=== PATIENT | female | born 1990 | race Caucasian/White ===

== ENCOUNTER 2017-09-02 14:02 | Outpatient (CLI) | payer OTHER ==
[2017-09-02 15:15] LABS: ADD UMIC NO; UR AMORPHOUS CRYSTAL FEW /HPF (NONE SEEN); UR ASCORBIC ACID NEGATIVE (NEGATIVE); UR BACTERIA FEW /HPF (NONE SEEN); UR BILIRUBIN (Dip) NEGATIVE (NEGATIVE); UR BLOOD (Dip) NEGATIVE (NEGATIVE); UR CLARITY SLIGHTLY CLOUDY (CLEAR); UR COLOR YELLOW (YELLOW); UR GLUCOSE (Dip) NEGATIVE (NEGATIVE); UR KETONES (Dip) NEGATIVE (NEGATIVE); UR LEUKOCYTE ESTERASE (Dip) NEGATIVE Leu/ul (NEGATIVE); UR NITRITE (Dip) NEGATIVE (NEGATIVE); UR RBC 1 /HPF (0-5); UR SPECIFIC GRAVITY (Dip) 1.011 (1.003-1.030); UR SQUAMOUS EPITHELIAL CELL MODERATE /HPF (FEW); UR TOTAL PROTEIN (Dip) NEGATIVE (NEGATIVE); UR UROBILINOGEN (Dip) NEGATIVE (NEGATIVE); UR WBC 1 /HPF (0-5)
[2017-09-02 16:17] LABS: ADD MAN DIFF? NO
[2017-09-02] MEDS ORDERED: TERBUTALINE 1 ML (16:51)
[2017-09-02 16:55] LABS: BASOPHILS % 0.4 % (0.0-2.0); EOSINOPHILS # 0.1 10^3/ul (0.0-0.5); EOSINOPHILS % 1.4 % (0.0-7.0); HEMOGLOBIN 9.9 g/dl (12.0-16.0); LYMPHOCYTES % 29.2 % (15.0-51.0); MEAN CORPUSCULAR HEMOGLOBIN 29.4 pg (29.0-33.0); MEAN CORPUSCULAR HGB CONC 31.9 g/dl (32.0-37.0); MONOCYTE # 0.6 10^3/ul (0.3-0.9); MONOCYTES % 8.9 % (0.0-11.0); NEUTROPHIL # 4.2 10^3/ul (1.6-7.5); NEUTROPHILS % 59.7 % (39.0-77.0); PLATELET COUNT 186 10^3/UL (140-415); RED BLOOD COUNT 3.37 10^6/ul (4.20-5.40); RED CELL DISTRIBUTION WIDTH 14.6 % (11.5-14.5)
[2017-09-02] MEDS: TERBUTALINE 1 MG/ML INJ SC (17:01)
== END 2017-09-02 18:05 | disposition home or self-care (01) ==
LOC: OBT 14:02 → L-D 14:02 → OBT 18:05
DX: O26.893 Other specified pregnancy related conditions, third trimester (principal); Z3A.30 30 weeks gestation of pregnancy; R10.32 Left lower quadrant pain
CPT/HCPCS: 76817; 76818; 81001; 81003; 85025; 87086

== ENCOUNTER 2017-09-11 12:00 | Outpatient (CLI) | payer OTHER | END 2017-09-11 15:56 | disposition home or self-care (01) | LOC: OBT 12:00 → L-D 12:00 → OBT 15:56 | DX: O48.0 Post-term pregnancy (principal); Z3A.40 40 weeks gestation of pregnancy | CPT/HCPCS: 76815 ==

== ENCOUNTER 2017-10-02 15:10 | Outpatient (CLI) | payer OTHER | END 2017-10-02 17:15 | disposition home or self-care (01) | LOC: OBT 15:10 → L-D 15:11 → OBT 17:15 | DX: O62.9 Abnormality of forces of labor, unspecified (principal); Z3A.37 37 weeks gestation of pregnancy | CPT/HCPCS: 76818 ==

== ENCOUNTER 2017-10-09 11:05 | Inpatient (IN) | payer OTHER ==
[2017-10-09] MEDS: LACTATED RINGER'S 1,000 ML IV* ×2 (12:21→21:17)
[2017-10-09] MEDS ORDERED: LIDOCAINE 1% (MPF) 30 ML INJ INJ (12:30)
[2017-10-09] MEDS ORDERED: BUTORPHANOL 2 MG INJ IV (12:30)
[2017-10-09] MEDS ORDERED: OXYTOCIN 30 UNITS/LR 500 ML IV (12:30)
[2017-10-09] MEDS ORDERED: MISOPROSTOL 200 MCG TAB PR (12:30)
[2017-10-09] MEDS ORDERED: CARBOPROST 250 MCG INJ IM (12:30)
[2017-10-09] MEDS ORDERED: METHYLERGONOVINE 0.2 MG INJ IM (12:30)
[2017-10-09] MEDS: AMPICILLIN 2 GM/NS (PMX) 100 ML IVPB (12:31)
[2017-10-09 12:49] LABS: ADD MAN DIFF? NO
[2017-10-09 12:51] LABS: BASOPHILS % 0.3 % (0.0-2.0); EOSINOPHILS # 0.1 10^3/ul (0.0-0.5); HEMATOCRIT 30.7 % (37.0-47.0); HEMOGLOBIN 9.9 g/dl (12.0-16.0); LYMPHOCYTES # 2.1 10^3/ul (0.8-2.9); LYMPHOCYTES % 29.9 % (15.0-51.0); MEAN CORPUSCULAR HEMOGLOBIN 27.9 pg (29.0-33.0); MEAN CORPUSCULAR HGB CONC 32.2 g/dl (32.0-37.0); MEAN CORPUSCULAR VOLUME 86.5 fl (82.0-101.0); MEAN PLATELET VOLUME 10.8 fl (7.4-10.4); MONOCYTE # 0.5 10^3/ul (0.3-0.9); MONOCYTES % 7.2 % (0.0-11.0); NEUTROPHIL # 4.3 10^3/ul (1.6-7.5); PLATELET COUNT 191 10^3/UL (140-415); RED BLOOD COUNT 3.55 10^6/ul (4.20-5.40); RED CELL DISTRIBUTION WIDTH 15.9 % (11.5-14.5)
[2017-10-09 13:22] LABS: INR 0.94; PROTIME 12.7 Sec (11.9-14.9)
[2017-10-09 14:57] LABS: RAPID PLASMA REAGIN NONREACTIVE (NR)
[2017-10-09] MEDS: ACETAMINOPHEN 325 MG TAB PO (17:14)
[2017-10-09] MEDS: AMPICILLIN 1 GM/NS (PMX) 50 ML IVPB ×2 (17:15→21:18)
[2017-10-09] MEDS: OXYTOCIN 30 UNITS/LR 500 ML IV ×2 (19:30→23:00)
[2017-10-09 21:33] LABS: AMPHETAMINE/METHAMPHETAMINE Negative (NEGATIVE); BARBITURATES Negative (NEGATIVE); BENZODIAZEPINES Negative (NEGATIVE); CANNABINOIDS Negative (NEGATIVE); COCAINE Negative (NEGATIVE); OPIATES Negative (NEGATIVE)
[2017-10-10] MEDS: LACTATED RINGER'S 1,000 ML IV* ×4 (01:30→22:06)
[2017-10-10] MEDS: AMPICILLIN 1 GM/NS (PMX) 50 ML IVPB ×3 (01:30→09:04)
[2017-10-10] MEDS ORDERED: NALOXONE (0.4 MG/ML) INJ IV ×2 (02:00→08:30)
[2017-10-10] MEDS ORDERED: DIPHENHYDRAMINE 50 MG INJ IV (02:00)
[2017-10-10] MEDS ORDERED: FENTAnyl 2MCG/ML-ROPIV 0.2% 100 ML BAG EPI (02:00)
[2017-10-10] MEDS ORDERED: HYDROmorphONE 0.5 MG/0.5 ML SYG IV ×2 (02:00)
[2017-10-10] MEDS ORDERED: KETOROLAC 30 MG INJ IV (02:00)
[2017-10-10] MEDS: OXYTOCIN 30 UNITS/LR 500 ML IV ×4 (03:00→10:10)
[2017-10-10] MEDS: ONDANSETRON 4 MG INJ IV (09:27)
[2017-10-10] MEDS: FENTAnyl 2MCG/ML-ROPIV 0.2% 100 ML BAG EPI (09:30)
[2017-10-10 13:03] LABS: HEPATITIS B SURFACE ANTIGEN NEGATIVE (NEGATIVE)
[2017-10-10] MEDS ORDERED: LANOLIN 7 GM TUBE TOP (14:30)
[2017-10-10] MEDS: CEPHALEXIN 500 MG CAP PO ×3 (14:30→23:57)
[2017-10-10] MEDS ORDERED: DIBUCAINE 1% 30 GM OINT PR (14:30)
[2017-10-10] MEDS ORDERED: BENZOCAINE 20% 56 ML SPRAY TOP (14:30)
[2017-10-10] MEDS ORDERED: WITCH HAZEL/GLYCERIN PAD PR (14:30)
[2017-10-10] MEDS ORDERED: HYDROCODONE/APAP (5/325) TAB PO (14:30)
[2017-10-10] MEDS ORDERED: OXYTOCIN 30 UNITS/LR 500 ML IV (14:30)
[2017-10-10] MEDS ORDERED: METHYLERGONOVINE 0.2 MG INJ IM (14:30)
[2017-10-10] MEDS ORDERED: CARBOPROST 250 MCG INJ IM (14:30)
[2017-10-10] MEDS ORDERED: ZOLPIDEM 5 MG TAB PO (14:30)
[2017-10-10] MEDS ORDERED: MISOPROSTOL 200 MCG TAB PR (14:30)
[2017-10-10] MEDS ORDERED: IBUPROFEN 600 MG TAB (14:46)
[2017-10-10] MEDS: IBUPROFEN 600 MG TAB PO ×2 (14:51→23:57)
[2017-10-10] MEDS: MINERAL OIL LIGHT 10 ML VIAL TOP ×2 (18:17)
[2017-10-10] MEDS: SENNA/DOCUSATE NA (8.6MG/50MG) TAB PO (21:04)
[2017-10-10] MEDS: MAGNESIUM HYDROXIDE 30ML CUP PO (21:04)
[2017-10-10] MEDS: HYDROCODONE/APAP (5/325) TAB PO (22:29)
[2017-10-11] MEDS: HYDROCODONE/APAP (5/325) TAB PO (03:51)
[2017-10-11] MEDS: LACTATED RINGER'S 1,000 ML IV* ×2 (06:06→14:06)
[2017-10-11] MEDS: CEPHALEXIN 500 MG CAP PO ×3 (06:27→17:56)
[2017-10-11] MEDS: IBUPROFEN 600 MG TAB PO ×3 (06:27→17:57)
[2017-10-11] MEDS: SENNA/DOCUSATE NA (8.6MG/50MG) TAB PO ×2 (08:47→21:00)
[2017-10-11] MEDS: MAGNESIUM HYDROXIDE 30ML CUP PO ×2 (08:47→21:00)
[2017-10-11 08:59] LABS: ADD MAN DIFF? NO
[2017-10-11 09:02] LABS: WHITE BLOOD COUNT 7.6 10^3/ul (4.8-10.8)
[2017-10-11 09:02] LABS: BASOPHILS % 0.4 % (0.0-2.0); EOSINOPHILS # 0.2 10^3/ul (0.0-0.5); EOSINOPHILS % 2.6 % (0.0-7.0); HEMATOCRIT 24.7 % (37.0-47.0); HEMOGLOBIN 7.8 g/dl (12.0-16.0); LYMPHOCYTES # 2.9 10^3/ul (0.8-2.9); LYMPHOCYTES % 38.7 % (15.0-51.0); MEAN CORPUSCULAR HEMOGLOBIN 27.6 pg (29.0-33.0); MEAN CORPUSCULAR HGB CONC 31.6 g/dl (32.0-37.0); MEAN CORPUSCULAR VOLUME 87.3 fl (82.0-101.0); MEAN PLATELET VOLUME 11.2 fl (7.4-10.4); MONOCYTE # 0.5 10^3/ul (0.3-0.9); MONOCYTES % 6.9 % (0.0-11.0); NEUTROPHIL # 3.9 10^3/ul (1.6-7.5); NEUTROPHILS % 50.7 % (39.0-77.0); PLATELET COUNT 144 10^3/UL (140-415); RED BLOOD COUNT 2.83 10^6/ul (4.20-5.40); RED CELL DISTRIBUTION WIDTH 16.2 % (11.5-14.5)
[2017-10-12] MEDS: CEPHALEXIN 500 MG CAP PO ×3 (00:35→12:16)
[2017-10-12] MEDS: IBUPROFEN 600 MG TAB PO ×3 (00:35→12:16)
[2017-10-12] MEDS: HYDROCODONE/APAP (5/325) TAB PO (01:35)
[2017-10-12] MEDS: MAGNESIUM HYDROXIDE 30ML CUP PO (09:00)
[2017-10-12] MEDS: VARICELLA VACCINE LIVE/PF 1,350 UNIT/0.5 ML ML SC* (09:00)
[2017-10-12] MEDS: MEASLES,MUMPS,RUBELLA VACCINE INJ SC* (09:00)
[2017-10-12] MEDS: SENNA/DOCUSATE NA (8.6MG/50MG) TAB PO (09:00)
[2017-10-12] MEDS: DIPHTH/TET/ACEL PERTUSS (ADULT) 0.5 ML VIAL IM* (12:17)
== END 2017-10-12 15:57 | disposition home or self-care (01) | DRG 775 ==
LOC: OBT 11:05 → PP1 10-10 16:34 → L-D 11:05 → OBT 11:34 → L-D 11:34
PROVIDERS: Obstetrics & Gynecology
PROC: 10E0XZZ Delivery of Products of Conception, External Approach (ICD-10-PCS; principal; 2017-10-10)
PROC: 3E0234Z Introduction of Serum, Toxoid and Vaccine into Muscle, Percutaneous Approach (ICD-10-PCS; 2017-10-12)
DX: O80 Encounter for full-term uncomplicated delivery (principal); Z3A.39 39 weeks gestation of pregnancy; Z37.0 Single live birth; Z23 Encounter for immunization
CPT/HCPCS: 62319; 80307; 85025; 85610; 85730; 86592; 86850; 86900; 86901; 87340; 90715